=== PATIENT | female | born 1965 | race Caucasian/White ===

== ENCOUNTER → 2017-04-08 | Day surgery (SDC) | payer BC ==
[~2017-04-08] VITALS: Ht 174 cm; Wt 61.9 kg
[~2017-04-08] MED LIST: PATANOL 0.1% DR0.1 % OPHTH
--- NOTE | ~2017-04-08 | CON ---
PATIENT'S NAME: FLORIDA DOHERTY [facility] AGE: 52 Y [address] ROOM: [place] [address] LOCATION: GEND ADMIT DATE: 04/08/2017 Consultation DISCHARGE DATE: FAMILY PHYSICIAN: Arianne Quintero MD ATTENDING PHYSICIAN: RAISSA AU REFERRING PHYSICIAN: Venus Hurd MD ADDENDUM: This is an addendum to the procedure performed, colonoscopy, on 04/08/2017. Random colon biopsies were done throughout the colon. VENUS HURD MD AAN/modl /[id number] d: 04/08/17 0949 t: 04/10/17 1730, CONSULTATION REPORT
== END | disposition disaster alternative care site (69) ==
LOC: GPOC 04-02 08:00 → GEND 07:29 → GPOC 08:00
PROC: 0DBH8ZZ Excision of Cecum, Via Natural or Artificial Opening Endoscopic (ICD-10-PCS; principal; 2017-04-08)
PROC: 0DBK8ZZ Excision of Ascending Colon, Via Natural or Artificial Opening Endoscopic (ICD-10-PCS; 2017-04-08)
DX: K63.5 Polyp of colon (principal); K57.30 Diverticulosis of large intestine without perforation or abscess without bleeding; K64.8 Other hemorrhoids; Z88.2 Allergy status to sulfonamides; Z98.890 Other specified postprocedural states
CPT/HCPCS: J2001; J7030